=== PATIENT | female | born 1955 | race Caucasian/White ===

== ENCOUNTER 2023-01-25 09:00 | Outpatient (RCR) | payer MEDICARE, OTHER, SELFPAY ==
--- NOTE | 2023-01-13 08:16 | HP.OTEVAL_ITS ---
Patient's Visit Information Visit Information Visit Information: DENNIS BARRETO is a 67 year old F, referred to Occupational Therapy by JERI LYNCH, with a diagnosis of ORIF R wrist s/p colles fracture. Date of Evaluation: 01/12/23 Occupational Therapist: Thea Galicia, ANGELICA/Danae, CHT Subjective Subjective: This 67 year old pt fell off of stool on October 30 sustained a colles fracture in her R wrist, on November 05 pt had an ORIF on R wrist and CTR. She is 9 weeks and 6 days post surgery. Pt reports difficulty with opening jar lids and bottles. Pt reports she would like like to return to [employer] (she swings left). Pt voices concerns regarding wrist ROM and tightness in her R MF, soreness in shoulder due to previous injury. 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 Pt is right hand dominant and reports she shaw s OA. Objective Objective/Observation: Therapist noted slight scar adhesion in fracture sit and some thickness in CTR ROM Forearm: R 85 sup 90 pron L 90* supination and pronation Wrist: R 35/25 L 45/80 ROM Comments: RD R 21* L 30* UD R 15* L 35* Strength Audit Senior Associate: R 20# L 25# Lateral Pinch: R 9# L 9# Tripod Pinch: R 7# L 9# Sensation Sensation Comments: denies Quick DASH-Disab of Arm,Shoulder& Hand Quick DASH Score: 23.3325 Goals Goal:100% adherence to protocol: Yes Comment: ORIF distal radius Goal:Daily scar massage when approriate: Yes Comment: ORIF scar and sight CTR scar thickness Goal:Audit Senior Associate/Pinch strength at least 75% of unaffected hand: Yes Goal:Full use of affected hand in daily activities including work: Yes Other Goal: Pt will demonstrate understanding of joint protection and adaptive equipment to decrease joint stress while performing ADL tasks by d/c. Pt to demo overall increased indep in ADL/IADL tasks by decreased total DASH score by 15 points by discharge. Rehabilitation General Assessment: Pt seen for OT eval for right colles wrist fracture s/p 9 weeks and 6 day ORIF. Pt arrives today for first Occupational therapy session due to vacation. 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 Pt is limited in her ability to perform ADL/IADL tasks. Pt will benefit from skilled OT 1-2x a week for 4 weeks to safely improve strength and ROM to return to ADL/IADL tasks. Therapist instructed pt in OT POC, healing process, scar management, and stretches. Pt verbalizes understanding and agreeable to OT POC. Therapy session was directly supervised and doc. approved by Thea DOMINGUEZ/Danae,CHT. Rehabilitation Potential: Excellent Anticipated Interventions Anticipated Interventions: A/AAROM/PROM, Strengthening, Scar Care, Triggerpoint Release, Modalities, Joint Protection/Energy Conservation, Ergonomic Education, Education re assistive Equipment, Education re Diagnosis and Home Program Visit Plan Frequency: 1-2x /Week Duration: 4 Weeks TEXT: Thank you for the opportunity to evaluate your patient. For Medicare and Medicare HMO plans, please review the plan of care and approve it. It will need to be FAXED BACK to us at [phone] for Medicare purposes. Please let me know if there are questions or concerns regarding this plan of care. Physician Signature: Date:
--- NOTE | 2023-01-25 12:46 | HP.OTDCSUM ---
Discharge Summary D/C Summary: It has been my pleasure to treat DENNIS BARRETO under orders from JERI LYNCH, for the diagnosis of ORIF R wrist s/p colles fracture for a total of 3 visit(s). Please see the following information for a summary of their discharge status. Overall Improvement % Improvement: 90 Objective Objective/Function: Long Winder Tender Strength R 15# Lateral career counselor strength R: 5# L:8# Tripod career counselor strength R: 5# L:4# R wrist 35/41 Goals Patient Goals: Regain Strength, Return to Work, Use Hand/Wrist/Arm Normally Again, Increase ROM and Resume Hobbies Goal:100% adherence to protocol: Yes Goal:Daily scar massage when approriate: Yes Goal:Long Winder Tender/Pinch strength at least 75% of unaffected hand: Yes Goal:Full use of affected hand in daily activities including work: Yes Other Goal: Pt will demonstrate understanding of joint protection and adaptive equipment to decrease joint stress while performing ADL tasks by d/c. Pt to demo overall increased indep in ADL/IADL tasks by decreased total DASH score by 15 points by discharge. Plan Plan: Follow through on exercises, assess strength and ensure pt able to follow exercise program, will continue to monitor progress D/C Information Discharge Comments: Pt was seen for 3 skilled OT visits. Therapist instructed pt in strengthening, ROM stretching, and joint protection. Pt demonstrates improvement in career counselor strength, wrist ROM, and verbalizes 3 joint protection techniques. Pt reports no difficulty with ADL and IADL tasks. Pt agreeable to discharge. Therapy session was directly supervised and doc. approved by Thea DOMINGUEZ/Danae, SELAM. d/c sentence: If there are questions or concerns regarding this patient's occupational therapy, please fell free to call me at [phone]. Thank you for the referral of this patient. Sincerely, ANGELICA Quiroz/Danae, SELAM
== END 2023-01-25 12:56 | disposition home or self-care (01) ==
LOC: OT 09:00
PROVIDERS: PCP Nurse Practitioner Adult Health
DX: S52.531D Colles' fracture of right radius, subsequent encounter for closed fracture with routine healing (principal)
CPT/HCPCS: 97110; 97166; 97530

== ENCOUNTER → 2024-11-13 | Outpatient (CLI) | payer MEDICARE, OTHER, SELFPAY ==
[2024-11-13 12:32] LABS: Absolute Lymphocyte Count 2.03 X10^3/uL (0.83-4.51); Absolute Neutrophil Count 2.9 X10^3/uL (2.0-7.7); Basophil# 0.05 X10^3/uL; Basophil% 0.9 % (0-1); Eosinophil# 0.21 X10^3/uL; Eosinophils% 3.8 % (0-5); Hematocrit 36.3 % (37-47); Lymphocyte # 2.03 X10^3/ul (0.83-4.51); Lymphocyte % 36.7 % (19-41); Mean Corp Hgb Conc 33.1 g/dL (32-36); Mean Corpuscular Hgb 30.8 pg (27.0-32.0); Mean Corpuscular Volume 93.1 fL (81-99); Mean Platelet Vol. 8.8 fl (6.2-12.0); Monocyte# 0.34 X10^3/uL; Monocyte% 6.1 % (0-10); NRBC Flagged by Analyzer 0 % (0-5); Neutrophil # 2.89 X10^3/uL (2.7-7.7); Neutrophil % 52.3 % (47-70); Platelet Count 329 K/mm3 (150-450); RBC Distribution Width CV 13.3 % (11.6-14.6); RBC Distribution Width SD 45.6 fl (35.1-43.9); White Blood Count 5.5 K/mm3 (4.4-11.0)
[2024-11-13 13:30] LABS: ALB/GLOB Ratio 1.4 RATIO (0.9-2.4); AST(SGOT) 20 U/L (<=31); Alanine Aminotransfer ALT/SGPT 10 U/L (<=34); Albumin, Serum 4.3 g/dL (3.4-4.8); Alkaline Phosphatase 62 U/L (35-104); Anion Gap 13 (5-15); BUN 16 mg/dL (4-19); Calcium,Total 9.3 mg/dL (7.6-11.0); Carbon Dioxide 21.6 mmol/L (21.0-32.0); Chloride 107 mmol/L (98-108); Cholesterol 194 mg/dL (<=200); Creatinine, Serum 0.81 mg/dL (0.70-1.20); EST Glomerular Filtration Rate 79 (>60); Glucose 93 mg/dL (70-99); High Density Lipoprotein 66 mg/dL; Low Density Lipoprotein Calc. 110 mg/dL; Potassium 4.2 mmol/L (3.3-5.1); Protein, Total 7.3 g/dL (5.9-8.4); Sodium Level 142 mmol/L (133-145); Triglycerides 88 mg/dL; Very Low Density Lipoprotein 18 mg/dL (5-40); cholesterol:hdl ratio screen 2.92
== END | disposition home or self-care (01) ==
LOC: BFHLAB 10:37
PROVIDERS: PCP Nurse Practitioner Family; Visit Provider Nurse Practitioner Family
DX: I10 Essential (primary) hypertension (principal); E78.5 Hyperlipidemia, unspecified
CPT/HCPCS: 36415; 80053; 80061; 85025